=== PATIENT | female | born 1995 | race Caucasian/White ===

== ENCOUNTER → 2017-04-02 | Outpatient (CLI) | payer MEDICAID ==
[~2017-04-02] MED LIST: IBUP800T PO; None per pt
[2017-04-02 15:23] LABS: HEMATOCRIT 39.1 % (34.6-47.8); HEMOGLOBIN 13.4 g/dL (11.7-16.4)
== END | disposition home or self-care (01) ==
LOC: STAR 14:38
PROVIDERS: ATTEND Specialist
DX: Z01.818 Encounter for other preprocedural examination (principal); O36.4XX0 Maternal care for intrauterine death, not applicable or unspecified; Z3A.00 Weeks of gestation of pregnancy not specified
CPT/HCPCS: 36415; 85014; 85018

== ENCOUNTER 2017-04-06 09:48 | Day surgery (SDC) | payer MEDICAID ==
[~2017-04-06] VITALS: Ht 160 cm; Wt 67.0 kg
[2017-04-06] MEDS ORDERED: LIDOCAINE 1%, 2ML ONE (10:18)
[2017-04-06] MEDS ORDERED: LACTATED RINGERS 1,000 ML IV SCH (10:19)
[2017-04-06 10:20] VITALS: BP 107/71
[2017-04-06] MEDS ORDERED: LIDOCAINE 1%, 2ML SQ PRN (10:30)
[2017-04-06] MEDS ORDERED: MISOPROSTOL 200 MCG TABLET ONE (11:11)
[2017-04-06] MEDS ORDERED: OXYTOCIN 10 UNITS/ML, 1ML ONE ×2 (11:11→16:34)
[2017-04-06] MEDS ORDERED: SILVER NITRATE STICK TP ONE (11:12)
[2017-04-06] MEDS ORDERED: METHYLERGONOVINE 0.2 MG/ML IM ONE (11:12)
[2017-04-06] MEDS ORDERED: MIDAZOLAM 1 MG/ML, 2ML ONE (11:26)
[2017-04-06] MEDS ORDERED: FENTANYL PF 100 MCG/2ML ONE ×2 (11:26→12:33)
[2017-04-06] MEDS ORDERED: hydrALAzine 20 MG/ML, 1ML IV PRN (12:00)
[2017-04-06] MEDS ORDERED: FENTANYL PF 100 MCG/2ML IV PRN (12:00)
[2017-04-06] MEDS ORDERED: ACETAMINOPHEN 325 MG TABLET PO PRN (12:00)
[2017-04-06] MEDS ORDERED: PROMETHAZINE 25 MG/ML, 1ML IV PRN (12:00)
[2017-04-06] MEDS ORDERED: OXYcodone 5 MG/5 ML ORAL.SOL UDC PO PRN (12:00)
[2017-04-06] MEDS ORDERED: HYDROmorphone 1 MG/ML, 1ML IV PRN (12:00)
[2017-04-06] MEDS ORDERED: METOPROLOL 1 MG/ML, 5ML IV PRN (12:00)
[2017-04-06] MEDS ORDERED: ALBUTEROL SULFATE 2.5 MG/3 ML NPPB PRN (12:00)
[2017-04-06] MEDS ORDERED: MIDAZOLAM 1 MG/ML, 2ML IV PRN (12:00)
[2017-04-06] MEDS ORDERED: MEPERIDINE/PF 25MG/0.5ML IVPush PRN (12:00)
[2017-04-06] MEDS ORDERED: ACETAMINOPHEN 650 MG/20.3 ML UDC ONE (12:33)
[2017-04-06] MEDS ORDERED: ACETAMINOPHEN 325 MG/10.15 ML UDC ONE (12:33)
[2017-04-06] MEDS ORDERED: OXYcodone 5 MG/5 ML ORAL.SOL UDC ONE (12:33)
[2017-04-06] MEDS ORDERED: ONDANSETRON 2MG/ML, 2ML ONE (16:34)
[2017-04-06] MEDS ORDERED: DEXAMETHASONE 4 MG/ML, 1ML ONE (16:34)
[2017-04-06] MEDS ORDERED: PROPOFOL 10 MG/ML, 20ML ONE (16:34)
== END 2017-04-06 14:00 ==
LOC: OUT 09:48
PROVIDERS: ATTEND Specialist
DX: O02.1 Missed abortion (principal); Z98.890 Other specified postprocedural states; K21.9 Gastro-esophageal reflux disease without esophagitis
CPT/HCPCS: 59820; 88305; J1100; J2250; J2405; J2590; J2704; J3010; J3490; J7120; J2210